=== PATIENT | female | born 1935 | race African-American/Black ===

== ENCOUNTER 2017-02-11 01:03 | Emergency (ER) | payer MEDICARE, MEDICAID ==
[~2017-02-11] VITALS: Ht 147.3 cm; Wt 81.0 kg
[~2017-02-11 01:03] MED LIST: ALBU6.7H INH; AMLO2.5T45 PO; ASPI-1035 PO; CLON0.2T PO; EZET1TAB6 PO; FAMO40TA7 PO; FURO-151 PO; GLIP5TAB12 PO; HYDR25TA PO; LOSA100T14 PO; METF500T4 PO; METO50TA5 PO; MONT10TA21 PO; POTA20TA75 PO; TIOT18CA3 IH
[2017-02-11 02:40] LABS: BASOPHILS % 0.5 % (0.0-2.0); EOSINOPHILS % 0.5 % (0.0-5.0); HEMATOCRIT. 33.9 % (36.0-48.0); HEMOGLOBIN. 11.3 g/dL (12.0-16.0); LYMPHOCYTES % 16.2 % (20.0-50.0); MEAN CORPUSCULAR HEMOGLOBIN 27.6 pg (28.0-32.0); MEAN CORPUSCULAR HGB CONC 33.2 g/dL (31.0-37.0); MEAN CORPUSCULAR VOLUME 83.2 fL (81.0-99.0); MEAN PLATELET VOLUME 9.2 fl (7.4-10.4); MONOCYTES % 4.4 % (2.0-8.0); NEUTROPHILS % 78.4 % (40.0-76.0); PLATELET 168 x1000/uL (130-400); RED BLOOD CELL COUNT 4.08 mill/uL (4.2-5.4); RED CELL DISTRIBUTION WIDTH 15.1 % (11.6-14.6); WHITE BLOOD COUNT 9.2 x1000/uL (4.5-11.0)
[2017-02-11 02:46] LABS: PROTHROMBIN TIME 10.8 sec
[2017-02-11 02:54] LABS: ALANINE AMINOTRANSFERASE 24 IU/L (13-61); ALBUMIN 3.2 g/dL (3.4-5.0); CARBON DIOXIDE 27 mEq/L (21-32); INDEX HEMOLYSI 1 (1-3); INDEX ICTERIC 1 (1-4); INDEX LIPEMIC 1 (1-3); UREA NITROGEN BLOOD 21 mg/dL (7-21); eGFR > 60 mL/min (>60)
[2017-02-11 02:57] LABS: ANION GAP 16; CHLORIDE 102 mEq/L (98-107)
[2017-02-11 03:30] VITALS: BP 130/60
== END 2017-02-11 03:45 | disposition home or self-care (01) ==
LOC: ER 01:18
DX: R00.2 Palpitations (principal); I10 Essential (primary) hypertension; E11.9 Type 2 diabetes mellitus without complications; J44.9 Chronic obstructive pulmonary disease, unspecified; I25.10 Atherosclerotic heart disease of native coronary artery without angina pectoris; J45.909 Unspecified asthma, uncomplicated; Z79.82 Long term (current) use of aspirin; Z79.84 Long term (current) use of oral hypoglycemic drugs; Z79.899 Other long term (current) drug therapy
CPT/HCPCS: 36415; 71010; 80053; 85025; 85610; 93005; 99285

== ENCOUNTER 2020-05-05 10:00 | Emergency (ER) | payer MEDICARE, MEDICAID ==
[~2020-05-05] VITALS: Ht 147.3 cm; Wt 82.0 kg
[~2020-05-05 10:00] MED LIST changes: -ALBU6.7H INH; +ALBU6.7H11 INH; -ASPI-1035 PO; +ASPI-1497 PO; -LOSA100T14 PO; +LOSA100T32 PO; +METF-414 PO; -METF500T4 PO; +METO-539 PO; -METO50TA5 PO; +POTA20TA12 PO; -POTA20TA75 PO
[2020-05-05] MEDS ORDERED: LIDOCAINE HCL/EPINEPHRINE 1%-EPI 1:100,000 30 ML VIAL INFIL ONE (10:45)
[2020-05-05] MEDS ORDERED: LIDOCAINE HCL/EPINEPHRINE 1%-EPI 1:100,000 20 ML VIAL MC ONE (11:30)
[2020-05-05] MEDS ORDERED: ACETAMINOPHEN 500MG TABLET PO ONE (11:45)
[2020-05-05 11:54] VITALS: BP 191/65
== END 2020-05-05 11:57 | disposition home or self-care (01) ==
LOC: ER 10:33
DX: M65.341 Trigger finger, right ring finger (principal); J44.9 Chronic obstructive pulmonary disease, unspecified; E11.9 Type 2 diabetes mellitus without complications; I10 Essential (primary) hypertension; M21.241 Flexion deformity, right finger joints; G58.8 Other specified mononeuropathies; I25.10 Atherosclerotic heart disease of native coronary artery without angina pectoris; Z79.899 Other long term (current) drug therapy; Z98.890 Other specified postprocedural states
CPT/HCPCS: 29130; 64450; 73140; 99284

== ENCOUNTER 2020-12-04 19:45 | Inpatient (IN) | payer MEDICARE, MEDICAID ==
[~2020-12-04] VITALS: Ht 142.2 cm; Wt 81.2 kg
[2020-12-04] MEDS ORDERED: CEFTRIAXONE 1 G PREMIX 50 ML IV ONE (20:15)
[2020-12-04] MEDS ORDERED: FUROSEMIDE 40MG/4ML VIAL IV ONE (20:15)
[2020-12-04] MEDS ORDERED: VANCOMYCIN 1 G PREMIX 200 ML IV ONE (20:15)
[2020-12-04 21:00] LABS: BASOPHILS % 0.5 % (0.0-2.0); EOSINOPHILS % 1.3 % (0.0-5.0); HEMATOCRIT. 35.9 % (36.0-48.0); HEMOGLOBIN. 11.5 g/dL (12.0-16.0); LYMPHOCYTES % 17.5 % (20.0-50.0); MEAN CORPUSCULAR VOLUME 84.1 fL (81.0-99.0); MEAN PLATELET VOLUME 9.6 fl (7.4-10.4); MONOCYTES % 7.6 % (2.0-8.0); NEUTROPHILS % 73.1 % (40.0-76.0); PLATELET 193 x1000/uL (130-400); RED BLOOD CELL COUNT 4.27 mill/uL (4.2-5.4); RED CELL DISTRIBUTION WIDTH 16.1 % (11.6-14.6)
[2020-12-04 21:05] LABS: CHLORIDE 101 mEq/L (98-107)
[2020-12-04 21:13] LABS: PROTHROMBIN TIME 10.9 sec (9.6-11.0)
[2020-12-05] MEDS ORDERED: DOCUSATE SODIUM 100MG CAPSULE PO PRN (10:15)
[2020-12-05] MEDS ORDERED: ACETAMINOPHEN 650MG SUPP PR PRN (10:15)
[2020-12-05] MEDS ORDERED: GUAIFENESIN 200MG/10ML SUGAR FREE UDC PO PRN (10:15)
[2020-12-05] MEDS ORDERED: ONDANSETRON HCL 4MG/2ML INJ IV PRN (10:15)
[2020-12-05] MEDS ORDERED: MAGNESIUM/ALUMINUM HYDROXIDE/SIMETHICONE 30ML UDC PO PRN (10:15)
[2020-12-05] MEDS ORDERED: DEXTROSE 50% WATER 50ML SYRINGE IV PRN (10:15)
[2020-12-05] MEDS ORDERED: LORAZEPAM 0.5MG TABLET PO PRN (10:15)
[2020-12-05] MEDS ORDERED: IPRATROPIUM/ALBUTEROL 0.5-3(2.5)MG/3ML NEB NEB PRN (10:15)
[2020-12-05] MEDS ORDERED: DIPHENHYDRAMINE 50MG/ML VIAL IV PRN (10:15)
[2020-12-05] MEDS ORDERED: ACETAMINOPHEN 325MG TABLET PO PRN (10:15)
[2020-12-05] MEDS: HYDROCODONE/ACETAMINOPHEN 5/325MG TABLET PO PRN ×2 (10:21→21:01)
[2020-12-05 11:00] VITALS: BP 175/80
[2020-12-05] MEDS ORDERED: METOPROLOL TARTRATE 25MG TABLET PO SCH (11:00)
[2020-12-05] MEDS ORDERED: ENOXAPARIN 30MG/0.3ML SYR SUBCUT SCH (11:00)
[2020-12-05] MEDS ORDERED: AMLODIPINE 5MG TABLET PO SCH (11:00)
[2020-12-05 11:30] VITALS: BP 192/61
[2020-12-05] MEDS ORDERED: ALBUTEROL 6.7GM HFA INHALER ORI SCH (11:45)
[2020-12-05 12:28] LABS: BASOPHILS % 0.3 % (0.0-2.0); EOSINOPHILS % 1.5 % (0.0-5.0); HEMATOCRIT. 35.3 % (36.0-48.0); HEMOGLOBIN. 11.5 g/dL (12.0-16.0); LYMPHOCYTES % 17.9 % (20.0-50.0); MEAN CORPUSCULAR HEMOGLOBIN 27.4 pg (28.0-32.0); MEAN CORPUSCULAR VOLUME 83.9 fL (81.0-99.0); MEAN PLATELET VOLUME 9.3 fl (7.4-10.4); MONOCYTES % 7.4 % (2.0-8.0); NEUTROPHILS % 72.9 % (40.0-76.0); PLATELET 180 x1000/uL (130-400); RED BLOOD CELL COUNT 4.21 mill/uL (4.2-5.4); RED CELL DISTRIBUTION WIDTH 16.4 % (11.6-14.6)
[2020-12-05 12:31] LABS: CHLORIDE 101 mEq/L (98-107)
[2020-12-05] MEDS: METHYLPREDNISOLONE SOD SUCC 40 MG/ML VIAL IV SCH ×2 (13:15→20:59)
[2020-12-05] MEDS: ASPIRIN 81MG EC TABLET PO SCH (13:16)
[2020-12-05] MEDS: LOSARTAN POTASSIUM 100 MG TABLET PO SCH (13:16)
[2020-12-05] MEDS: FUROSEMIDE 40MG TABLET PO SCH (13:16)
[2020-12-05] MEDS: BLOOD SUGAR DIAGNOSTIC STRIP TEST SCH ×3 (13:19→21:01)
[2020-12-05] MEDS: INSULIN LISPRO 100 UNITS/ML SUBCUT SCH ×3 (13:21→20:56)
[2020-12-05] MEDS: CEFTRIAXONE 1,000 MG in DEXTROSE 5% WATER 50 ML IV SCH (13:26)
[2020-12-05 14:00] VITALS: BP 168/69
[2020-12-05 16:00] VITALS: BP 174/50
[2020-12-05] MEDS: ALBUTEROL (0.083%) 2.5MG/3ML NEB HHN SCH ×2 (16:23→21:17)
[2020-12-05] MEDS: METFORMIN HCL 500MG TABLET PO SCH (17:57)
[2020-12-05] MEDS: GLIPIZIDE 5MG TABLET PO SCH (17:57)
[2020-12-05] MEDS: CLONIDINE 0.1MG TABLET PO PRN (18:15)
[2020-12-05 20:00] VITALS: BP 146/57
[2020-12-05] MEDS: METOPROLOL TARTRATE 25MG TABLET PO SCH (20:58)
[2020-12-05] MEDS: HYDRALAZINE HCL 10MG TABLET PO SCH (20:58)
[2020-12-05] MEDS: FAMOTIDINE 20MG TABLET PO SCH (20:59)
[2020-12-06 00:28] VITALS: BP 130/58
[2020-12-06 04:00] VITALS: BP 151/58
[2020-12-06] MEDS: ALBUTEROL (0.083%) 2.5MG/3ML NEB HHN SCH (04:05)
[2020-12-06] MEDS: GLIPIZIDE 5MG TABLET PO SCH ×2 (06:20→18:08)
[2020-12-06] MEDS: BLOOD SUGAR DIAGNOSTIC STRIP TEST SCH ×4 (06:20→20:43)
[2020-12-06 06:27] LABS: CLARITY URINE CLEAR (CLEAR); COLOR URINE YELLOW (YELLOW); KETONES URINE NEGATIVE (NEGATIVE); LEUKOCYTE ESTERASE URINE NEGATIVE (NEGATIVE); NITRITE URINE NEGATIVE (NEGATIVE); OCCULT BLOOD URINE NEGATIVE (NEGATIVE); PROTEIN URINE NEGATIVE (NEGATIVE); SPECIFIC GRAVITY URINE 1.014 (1.005-1.030); UROBILINOGEN URINE 0.2 E.U./dL (0.2-1.0)
[2020-12-06 07:43] LABS: HEMATOCRIT. 34.4 % (36.0-48.0); HEMOGLOBIN. 11.2 g/dL (12.0-16.0); LYMPHOCYTES % 10.1 % (20.0-50.0); MEAN CORPUSCULAR HEMOGLOBIN 27.5 pg (28.0-32.0); MEAN CORPUSCULAR VOLUME 84.4 fL (81.0-99.0); MEAN PLATELET VOLUME 9.2 fl (7.4-10.4); MONOCYTES % 1.2 % (2.0-8.0); NEUTROPHILS % 88.7 % (40.0-76.0); PLATELET 181 x1000/uL (130-400); RED BLOOD CELL COUNT 4.08 mill/uL (4.2-5.4); RED CELL DISTRIBUTION WIDTH 16.2 % (11.6-14.6)
[2020-12-06 07:53] LABS: CHLORIDE 100 mEq/L (98-107)
[2020-12-06 08:01] LABS: LDL CHOLESTEROL 93 mg/dL (5-100)
[2020-12-06 08:02] LABS: HDL CHOLESTEROL 49 mg/dL (40-59)
[2020-12-06 08:03] LABS: T4 FREE 1.02 ng/dL (0.76-1.46)
[2020-12-06] MEDS: METFORMIN HCL 500MG TABLET PO SCH ×2 (08:34→18:07)
[2020-12-06] MEDS: INSULIN LISPRO 100 UNITS/ML SUBCUT SCH ×4 (08:35→20:50)
[2020-12-06] MEDS ORDERED: LIDOCAINE HCL/PF 1% 2ML VIAL ONE (09:00)
[2020-12-06] MEDS: HYDROCODONE/ACETAMINOPHEN 5/325MG TABLET PO PRN (09:28)
[2020-12-06] MEDS: CEFTRIAXONE 1,000 MG in DEXTROSE 5% WATER 50 ML IV SCH (10:11)
[2020-12-06] MEDS: ASPIRIN 81MG EC TABLET PO SCH (10:13)
[2020-12-06] MEDS: METOPROLOL TARTRATE 25MG TABLET PO SCH ×2 (10:13→20:37)
[2020-12-06] MEDS: LOSARTAN POTASSIUM 100 MG TABLET PO SCH (10:14)
[2020-12-06] MEDS: METHYLPREDNISOLONE SOD SUCC 40 MG/ML VIAL IV SCH ×2 (10:14→20:37)
[2020-12-06] MEDS: HYDRALAZINE HCL 10MG TABLET PO SCH ×2 (10:14→20:37)
[2020-12-06] MEDS: FUROSEMIDE 40MG TABLET PO SCH (10:14)
[2020-12-06] MEDS: ENOXAPARIN 40MG/0.4ML SYR SUBCUT SCH (10:15)
[2020-12-06 12:00] VITALS: BP 145/52
[2020-12-06 14:14] LABS: BG BASE EXCESS 0.7 mmol/L (-2.0-2.0); BG CARBOXYHEMOGLOBIN 0.9 % (0.5-1.5); BG DEOXYHEMOGLOBIN 4.4 % (0.0-5.0); BG FRACTION INSPIRED OXYGEN 21; BG METHEMOGLOBIN 0.3 % (0.0-1.5); BG OXYGEN SATURATION 95.5 % (92.0-98.5); BG OXYHEMOGLOBIN 94.4 % (94.0-97.0); BG PCO2 44.4 mmHg (35.0-45.0); BG PH 7.386 (7.350-7.450); BG PO2 80.9 mmHg (75.0-100.0); BG SAMPLE SITE RIGHT RADIAL; BG VENT MODE ROOM AIR
[2020-12-06] MEDS ORDERED: INSULIN GLARGINE UD 100 UNITS/ML SYR SUBCUT NR ×2 (15:00→19:30)
[2020-12-06 16:00] VITALS: BP 159/59
[2020-12-06 20:00] VITALS: BP 164/54
[2020-12-06] MEDS: FAMOTIDINE 20MG TABLET PO SCH (20:37)
[2020-12-06] MEDS: IPRATROPIUM/ALBUTEROL 0.5-3(2.5)MG/3ML NEB HHN SCH (20:39)
[2020-12-06] MEDS: BUDESONIDE 0.5MG/2ML NEB HHN SCH (20:39)
[2020-12-07] VITALS: BP 169/55
[2020-12-07] MEDS: IPRATROPIUM/ALBUTEROL 0.5-3(2.5)MG/3ML NEB HHN SCH ×4 (02:16→21:25)
[2020-12-07 04:00] VITALS: BP 171/57
[2020-12-07 06:15] LABS: BASOPHILS % 0.1 % (0.0-2.0); HEMATOCRIT. 32.8 % (36.0-48.0); HEMOGLOBIN. 10.7 g/dL (12.0-16.0); LYMPHOCYTES % 8.3 % (20.0-50.0); MEAN CORPUSCULAR HEMOGLOBIN 27.8 pg (28.0-32.0); MEAN CORPUSCULAR VOLUME 84.9 fL (81.0-99.0); MEAN PLATELET VOLUME 10.1 fl (7.4-10.4); MONOCYTES % 2.3 % (2.0-8.0); NEUTROPHILS % 89.3 % (40.0-76.0); PLATELET 197 x1000/uL (130-400); RED BLOOD CELL COUNT 3.86 mill/uL (4.2-5.4); RED CELL DISTRIBUTION WIDTH 15.8 % (11.6-14.6)
[2020-12-07 06:18] LABS: CHLORIDE 99 mEq/L (98-107)
[2020-12-07] MEDS: BLOOD SUGAR DIAGNOSTIC STRIP TEST SCH ×4 (06:29→20:38)
[2020-12-07] MEDS: INSULIN LISPRO 100 UNITS/ML SUBCUT SCH ×4 (06:30→20:58)
[2020-12-07 08:10] VITALS: BP 182/43
[2020-12-07] MEDS: ASPIRIN 81MG EC TABLET PO SCH (08:43)
[2020-12-07] MEDS: METFORMIN HCL 500MG TABLET PO SCH ×2 (08:43→17:01)
[2020-12-07] MEDS: ENOXAPARIN 40MG/0.4ML SYR SUBCUT SCH (08:43)
[2020-12-07] MEDS: METHYLPREDNISOLONE SOD SUCC 40 MG/ML VIAL IV SCH ×2 (08:43→20:42)
[2020-12-07] MEDS: CEFTRIAXONE 1,000 MG in DEXTROSE 5% WATER 50 ML IV SCH (08:43)
[2020-12-07] MEDS: METOPROLOL TARTRATE 25MG TABLET PO SCH ×2 (08:44→20:43)
[2020-12-07] MEDS: GLIPIZIDE 5MG TABLET PO SCH ×2 (08:44→17:01)
[2020-12-07] MEDS: FUROSEMIDE 40MG TABLET PO SCH ×2 (08:45→17:01)
[2020-12-07] MEDS: HYDRALAZINE HCL 25MG TABLET PO SCH ×2 (08:48→20:42)
[2020-12-07] MEDS: BUDESONIDE 0.5MG/2ML NEB HHN SCH ×2 (09:43→21:25)
[2020-12-07] MEDS: INSULIN GLARGINE UD 100 UNITS/ML SYR SUBCUT SCH (10:39)
[2020-12-07 12:10] VITALS: BP 147/63
[2020-12-07] MEDS: LOSARTAN POTASSIUM 100 MG TABLET PO SCH (16:08)
[2020-12-07 16:09] VITALS: BP 189/76
[2020-12-07 20:00] VITALS: BP 159/72
[2020-12-07] MEDS: FAMOTIDINE 20MG TABLET PO SCH (20:42)
[2020-12-08] VITALS (7 sets, daily range): BP systolic 149–177; BP diastolic 41–73
[2020-12-08] MEDS: IPRATROPIUM/ALBUTEROL 0.5-3(2.5)MG/3ML NEB HHN SCH ×3 (03:17→22:21)
[2020-12-08 05:59] LABS: BASOPHILS % 0.2 % (0.0-2.0); HEMATOCRIT. 32.6 % (36.0-48.0); HEMOGLOBIN. 10.9 g/dL (12.0-16.0); LYMPHOCYTES % 7.9 % (20.0-50.0); MEAN CORPUSCULAR HEMOGLOBIN 28.4 pg (28.0-32.0); MEAN CORPUSCULAR VOLUME 85.2 fL (81.0-99.0); MONOCYTES % 2.6 % (2.0-8.0); NEUTROPHILS % 89.3 % (40.0-76.0); PLATELET 191 x1000/uL (130-400); RED BLOOD CELL COUNT 3.83 mill/uL (4.2-5.4)
[2020-12-08 06:14] LABS: CHLORIDE 100 mEq/L (98-107)
[2020-12-08] MEDS: BLOOD SUGAR DIAGNOSTIC STRIP TEST SCH ×4 (06:50→20:24)
[2020-12-08] MEDS: GLIPIZIDE 5MG TABLET PO SCH ×2 (06:50→17:20)
[2020-12-08] MEDS: FUROSEMIDE 40MG TABLET PO SCH ×2 (06:50→17:15)
[2020-12-08] MEDS: HYDROCODONE/ACETAMINOPHEN 5/325MG TABLET PO PRN (07:09)
[2020-12-08] MEDS: BUDESONIDE 0.5MG/2ML NEB HHN SCH ×2 (08:13→22:21)
[2020-12-08] MEDS: METHYLPREDNISOLONE SOD SUCC 40 MG/ML VIAL IV SCH ×2 (08:16→20:41)
[2020-12-08] MEDS: ASPIRIN 81MG EC TABLET PO SCH (08:17)
[2020-12-08] MEDS: ENOXAPARIN 40MG/0.4ML SYR SUBCUT SCH (08:17)
[2020-12-08] MEDS: CEFTRIAXONE 1,000 MG in DEXTROSE 5% WATER 50 ML IV SCH (08:17)
[2020-12-08] MEDS: METFORMIN HCL 500MG TABLET PO SCH ×2 (08:17→17:20)
[2020-12-08] MEDS: LOSARTAN POTASSIUM 100 MG TABLET PO SCH (08:18)
[2020-12-08] MEDS: HYDRALAZINE HCL 25MG TABLET PO SCH (08:18)
[2020-12-08] MEDS: INSULIN LISPRO 100 UNITS/ML SUBCUT SCH ×4 (08:19→21:07)
[2020-12-08] MEDS: HYDRALAZINE HCL 50MG TABLET PO SCH ×2 (09:40→21:00)
[2020-12-08] MEDS: METOPROLOL TARTRATE 25MG TABLET PO SCH ×2 (09:40→21:00)
[2020-12-08] MEDS: INSULIN GLARGINE UD 100 UNITS/ML SYR SUBCUT SCH (09:42)
[2020-12-08] MEDS: CLONIDINE 0.1MG TABLET PO PRN (13:21)
[2020-12-08] MEDS: FAMOTIDINE 20MG TABLET PO SCH (21:05)
[2020-12-09] VITALS (8 sets, daily range): BP systolic 143–186; BP diastolic 51–66
[2020-12-09] MEDS: METOPROLOL TARTRATE 25MG TABLET PO SCH ×3 (00:23→21:31)
[2020-12-09] MEDS: HYDRALAZINE HCL 50MG TABLET PO SCH ×3 (00:23→21:31)
[2020-12-09] MEDS: IPRATROPIUM/ALBUTEROL 0.5-3(2.5)MG/3ML NEB HHN SCH ×4 (04:02→22:04)
[2020-12-09] MEDS: BLOOD SUGAR DIAGNOSTIC STRIP TEST SCH ×4 (06:21→21:34)
[2020-12-09] MEDS: GLIPIZIDE 5MG TABLET PO SCH ×2 (06:24→17:57)
[2020-12-09] MEDS: FUROSEMIDE 40MG TABLET PO SCH ×2 (06:24→17:57)
[2020-12-09 07:09] LABS: CHLORIDE 100 mEq/L (98-107)
[2020-12-09 07:16] LABS: BASOPHILS % 0.1 % (0.0-2.0); HEMATOCRIT. 34.8 % (36.0-48.0); HEMOGLOBIN. 11.3 g/dL (12.0-16.0); LYMPHOCYTES % 9.1 % (20.0-50.0); MEAN CORPUSCULAR HEMOGLOBIN 27.7 pg (28.0-32.0); MEAN PLATELET VOLUME 9.9 fl (7.4-10.4); MONOCYTES % 4.4 % (2.0-8.0); NEUTROPHILS % 86.4 % (40.0-76.0); PLATELET 191 x1000/uL (130-400); RED BLOOD CELL COUNT 4.09 mill/uL (4.2-5.4); RED CELL DISTRIBUTION WIDTH 16.3 % (11.6-14.6)
[2020-12-09] MEDS: BUDESONIDE 0.5MG/2ML NEB HHN SCH ×2 (08:12→22:04)
[2020-12-09] MEDS: METHYLPREDNISOLONE SOD SUCC 40 MG/ML VIAL IV SCH ×2 (08:23→15:06)
[2020-12-09] MEDS: CEFTRIAXONE 1,000 MG in DEXTROSE 5% WATER 50 ML IV SCH (08:24)
[2020-12-09] MEDS: METFORMIN HCL 500MG TABLET PO SCH ×2 (08:45→17:57)
[2020-12-09] MEDS: LOSARTAN POTASSIUM 100 MG TABLET PO SCH (08:45)
[2020-12-09] MEDS: ASPIRIN 81MG EC TABLET PO SCH (08:45)
[2020-12-09] MEDS: ENOXAPARIN 40MG/0.4ML SYR SUBCUT SCH (08:45)
[2020-12-09] MEDS: INSULIN LISPRO 100 UNITS/ML SUBCUT SCH ×4 (08:46→21:32)
[2020-12-09] MEDS: INSULIN GLARGINE UD 100 UNITS/ML SYR SUBCUT SCH ×2 (10:42→21:33)
[2020-12-09] MEDS: CLONIDINE 0.1MG TABLET PO PRN (18:10)
[2020-12-09] MEDS: FAMOTIDINE 20MG TABLET PO SCH (21:31)
[2020-12-10] VITALS: BP 169/61
[2020-12-10] MEDS: IPRATROPIUM/ALBUTEROL 0.5-3(2.5)MG/3ML NEB HHN SCH ×4 (01:59→21:19)
[2020-12-10 04:00] VITALS: BP 162/63
[2020-12-10] MEDS: BLOOD SUGAR DIAGNOSTIC STRIP TEST SCH ×4 (06:24→21:17)
[2020-12-10] MEDS: GLIPIZIDE 5MG TABLET PO SCH ×2 (06:24→17:28)
[2020-12-10] MEDS: FUROSEMIDE 40MG TABLET PO SCH ×2 (06:24→17:28)
[2020-12-10] MEDS: HYDROCODONE/ACETAMINOPHEN 5/325MG TABLET PO PRN (06:34)
[2020-12-10] MEDS: HYDRALAZINE HCL 50MG TABLET PO SCH (08:27)
[2020-12-10] MEDS: ASPIRIN 81MG EC TABLET PO SCH (08:27)
[2020-12-10] MEDS: METFORMIN HCL 500MG TABLET PO SCH ×2 (08:27→17:28)
[2020-12-10] MEDS: ENOXAPARIN 40MG/0.4ML SYR SUBCUT SCH (08:28)
[2020-12-10] MEDS: METHYLPREDNISOLONE SOD SUCC 40 MG/ML VIAL IV SCH (08:28)
[2020-12-10] MEDS: LOSARTAN POTASSIUM 100 MG TABLET PO SCH (08:29)
[2020-12-10] MEDS: INSULIN LISPRO 100 UNITS/ML SUBCUT SCH ×4 (08:29→21:16)
[2020-12-10 08:30] VITALS: BP 181/57
[2020-12-10] MEDS: METOPROLOL TARTRATE 25MG TABLET PO SCH ×2 (08:35→21:13)
[2020-12-10] MEDS: INSULIN GLARGINE UD 100 UNITS/ML SYR SUBCUT SCH ×2 (10:49→21:17)
[2020-12-10 12:00] VITALS: BP 154/47
[2020-12-10 16:00] VITALS: BP 161/51
[2020-12-10 20:00] VITALS: BP 176/54
[2020-12-10] MEDS: FAMOTIDINE 20MG TABLET PO SCH (21:13)
[2020-12-10] MEDS: HYDRALAZINE HCL 100MG TABLET PO SCH (21:13)
[2020-12-11] VITALS (8 sets, daily range): BP systolic 129–175; BP diastolic 47–92
[2020-12-11] MEDS: IPRATROPIUM/ALBUTEROL 0.5-3(2.5)MG/3ML NEB HHN SCH ×4 (05:14→20:31)
[2020-12-11] MEDS: GLIPIZIDE 5MG TABLET PO SCH ×2 (06:29→17:59)
[2020-12-11] MEDS: FUROSEMIDE 40MG TABLET PO SCH ×2 (06:30→17:59)
[2020-12-11] MEDS: BLOOD SUGAR DIAGNOSTIC STRIP TEST SCH ×4 (06:31→20:35)
[2020-12-11] MEDS: INSULIN LISPRO 100 UNITS/ML SUBCUT SCH ×4 (07:50→20:34)
[2020-12-11 07:52] LABS: CHLORIDE 99 mEq/L (98-107)
[2020-12-11 07:57] LABS: BASOPHILS % 0.1 % (0.0-2.0); EOSINOPHILS % 1.3 % (0.0-5.0); HEMATOCRIT. 42.1 % (36.0-48.0); HEMOGLOBIN. 13.2 g/dL (12.0-16.0); LYMPHOCYTES % 17.4 % (20.0-50.0); MEAN CORPUSCULAR HEMOGLOBIN 27.2 pg (28.0-32.0); MEAN PLATELET VOLUME 9.4 fl (7.4-10.4); MONOCYTES % 6.7 % (2.0-8.0); NEUTROPHILS % 74.5 % (40.0-76.0); PLATELET 136 x1000/uL (130-400); RED BLOOD CELL COUNT 4.84 mill/uL (4.2-5.4); RED CELL DISTRIBUTION WIDTH 16.8 % (11.6-14.6)
[2020-12-11] MEDS: ENOXAPARIN 40MG/0.4ML SYR SUBCUT SCH (08:47)
[2020-12-11] MEDS: ASPIRIN 81MG EC TABLET PO SCH (08:47)
[2020-12-11] MEDS: METFORMIN HCL 500MG TABLET PO SCH ×2 (08:47→17:59)
[2020-12-11] MEDS: LOSARTAN POTASSIUM 100 MG TABLET PO SCH (08:48)
[2020-12-11] MEDS: HYDRALAZINE HCL 100MG TABLET PO SCH ×2 (08:48→20:35)
[2020-12-11] MEDS: METHYLPREDNISOLONE SOD SUCC 40 MG/ML VIAL IV SCH (08:48)
[2020-12-11] MEDS: METOPROLOL TARTRATE 25MG TABLET PO SCH ×2 (08:49→11:04)
[2020-12-11] MEDS: INSULIN GLARGINE UD 100 UNITS/ML SYR SUBCUT SCH ×2 (11:05→22:00)
[2020-12-11] MEDS: CLONIDINE 0.1MG TABLET PO PRN (13:24)
[2020-12-11] MEDS: PREDNISONE 20MG TABLET PO SCH (17:59)
[2020-12-11] MEDS: FAMOTIDINE 20MG TABLET PO SCH (20:35)
[2020-12-11] MEDS ORDERED: INSULIN LISPRO 100 UNITS/ML SUBCUT NR (23:00)
[2020-12-12] MEDS: CLONIDINE 0.2MG TABLET PO PRN ×2 (00:06→14:07)
[2020-12-12] MEDS: IPRATROPIUM/ALBUTEROL 0.5-3(2.5)MG/3ML NEB HHN SCH ×2 (01:15→11:26)
[2020-12-12 04:00] VITALS: BP 130/35
[2020-12-12] MEDS: FUROSEMIDE 40MG TABLET PO SCH (06:04)
[2020-12-12] MEDS: GLIPIZIDE 5MG TABLET PO SCH (06:05)
[2020-12-12] MEDS: INSULIN LISPRO 100 UNITS/ML SUBCUT SCH ×2 (06:13→12:49)
[2020-12-12] MEDS: BLOOD SUGAR DIAGNOSTIC STRIP TEST SCH ×2 (07:20→12:34)
[2020-12-12 08:00] VITALS: BP 148/62
[2020-12-12] MEDS: HYDRALAZINE HCL 100MG TABLET PO SCH (08:56)
[2020-12-12] MEDS: PREDNISONE 20MG TABLET PO SCH (08:56)
[2020-12-12] MEDS: METFORMIN HCL 500MG TABLET PO SCH (08:57)
[2020-12-12] MEDS: LOSARTAN POTASSIUM 100 MG TABLET PO SCH (08:57)
[2020-12-12] MEDS: ENOXAPARIN 40MG/0.4ML SYR SUBCUT SCH (08:58)
[2020-12-12] MEDS: METOPROLOL TARTRATE 25MG TABLET PO SCH (08:58)
[2020-12-12] MEDS: ASPIRIN 81MG EC TABLET PO SCH (08:58)
[2020-12-12] MEDS: INSULIN GLARGINE UD 100 UNITS/ML SYR SUBCUT SCH (11:09)
[2020-12-12 11:31] VITALS: BP 152/62
[2020-12-12] MEDS ORDERED: HYDRALAZINE 20MG/ML VIAL IV PRN (15:15)
[2020-12-12 16:00] VITALS: BP 157/66
[2020-12-12] MEDS ORDERED: NITROGLYCERIN OINT 1GM/INCH UDPKT TD SCH (16:00)
[2020-12-12] MEDS ORDERED: INSULIN GLARGINE UD 100 UNITS/ML SYR SUBCUT SCH (22:00)
[2020-12-13] MEDS ORDERED: HYDRALAZINE HCL 100MG TABLET PO SCH (09:00)
== END 2020-12-12 16:22 | DRG 871 ==
LOC: ER 19:45 → 6WST 22:44 → EDBEDREQTM 22:46 → EDBEDREQ 22:46 → ENRESERV 12-05 08:28 → 6WST 12-05 10:08 → ENPENDDIS 12-07
PROVIDERS: ADMIT Internal Medicine; ATTEND Internal Medicine
DX: A41.9 Sepsis, unspecified organism (principal); I50.43 Acute on chronic combined systolic (congestive) and diastolic (congestive) heart failure; L03.115 Cellulitis of right lower limb; J44.1 Chronic obstructive pulmonary disease with (acute) exacerbation; Z68.41 Body mass index [BMI] 40.0-44.9, adult; E11.51 Type 2 diabetes mellitus with diabetic peripheral angiopathy without gangrene; E11.65 Type 2 diabetes mellitus with hyperglycemia; I11.0 Hypertensive heart disease with heart failure; E87.5 Hyperkalemia; D64.9 Anemia, unspecified; Z20.822 Contact with and (suspected) exposure to COVID-19; I25.10 Atherosclerotic heart disease of native coronary artery without angina pectoris; I16.0 Hypertensive urgency; I27.21 Secondary pulmonary arterial hypertension; M19.90 Unspecified osteoarthritis, unspecified site; Z79.82 Long term (current) use of aspirin; Z79.84 Long term (current) use of oral hypoglycemic drugs; Z79.899 Other long term (current) drug therapy; Z82.49 Family history of ischemic heart disease and other diseases of the circulatory system; Z87.891 Personal history of nicotine dependence; Z79.51 Long term (current) use of inhaled steroids; Z98.62 Peripheral vascular angioplasty status; R06.03 Acute respiratory distress; E66.9 Obesity, unspecified
CPT/HCPCS: 36415; 36600; 71045; 80048; 80053; 80061; 81003; 82375; 82805; 82962; 83036; 83735; 83880; 84439; 84443; 84484; 85025; 87426; 93005; 93306; 93970; 94640; 97162; 97530; 99285; C1893; J0360; J0696; J1650; J1815; J1940; J2920; J3370; J3490; J7060; J7512; J7626

== ENCOUNTER 2022-09-17 15:36 | Emergency (ER) | payer MEDICARE, MEDICAID ==
[~2022-09-17] VITALS: Ht 157.5 cm; Wt 69.0 kg
[~2022-09-17 15:36] MED LIST changes: -ALBU6.7H11 INH; +ALBU6.7H15 INH; -AMLO2.5T45 PO; +POTA-194 PO; -POTA20TA12 PO
[2022-09-17 17:00] LABS: BASOPHILS % 0.2 % (0.0-2.0); EOSINOPHILS % 0.5 % (0.0-5.0); HEMATOCRIT. 31.2 % (36.0-48.0); HEMOGLOBIN. 10.3 g/dL (12.0-16.0); LYMPHOCYTES % 16.6 % (20.0-50.0); MEAN CORPUSCULAR HEMOGLOBIN 28.4 pg (28.0-32.0); MEAN CORPUSCULAR VOLUME 86.1 fL (81.0-99.0); MEAN PLATELET VOLUME 9.2 fl (7.4-10.4); MONOCYTES % 3.6 % (2.0-8.0); NEUTROPHILS % 79.1 % (40.0-76.0); PLATELET 152 x1000/uL (130-400); RED BLOOD CELL COUNT 3.62 mill/uL (4.2-5.4); RED CELL DISTRIBUTION WIDTH 14.5 % (11.6-14.6)
[2022-09-17 17:09] LABS: PROTHROMBIN TIME 10.9 sec (9.6-11.0)
[2022-09-17 18:58] LABS: CHLORIDE 102 mEq/L (98-107)
[2022-09-17 22:02] LABS: CLARITY URINE CLEAR (CLEAR); COLOR URINE YELLOW (YELLOW); KETONES URINE TRACE (NEGATIVE); LEUKOCYTE ESTERASE URINE NEGATIVE (NEGATIVE); NITRITE URINE NEGATIVE (NEGATIVE); OCCULT BLOOD URINE NEGATIVE (NEGATIVE); PH URINE 5.5 (4.5-8.0); PROTEIN URINE NEGATIVE (NEGATIVE); SPECIFIC GRAVITY URINE 1.023 (1.005-1.030); UROBILINOGEN URINE 0.2 E.U./dL (0.2-1.0)
[2022-09-17] MEDS ORDERED: FAMO40TA70 MT (22:03)
[2022-09-17] MEDS: MORPHINE SULFATE 2 MG/ML CPJ (NOT FOR IM USE) IV NR (23:30)
[2022-09-18] MEDS: MORPHINE SULFATE 2 MG/ML CPJ (NOT FOR IM USE) IV ONE (00:28)
[2022-09-18 08:30] VITALS: BP 142/71
[2022-09-19] MEDS ORDERED: METR375C2 MT (01:55)
[2022-09-19] MEDS ORDERED: CIPR-263 MT (01:55)
== END 2022-09-18 08:33 | disposition home or self-care (01) ==
LOC: ER 15:36
DX: K52.9 Noninfective gastroenteritis and colitis, unspecified (principal); K29.80 Duodenitis without bleeding; J44.9 Chronic obstructive pulmonary disease, unspecified; E11.9 Type 2 diabetes mellitus without complications; I10 Essential (primary) hypertension; Z79.899 Other long term (current) drug therapy
CPT/HCPCS: 36415; 74176; 80053; 81003; 82962; 83605; 83690; 85025; 85610; 93005; 96374; 99285; J2270